=== PATIENT | female | born 1995 | race Caucasian/White ===

== ENCOUNTER → 2019-04-20 | Outpatient (CLI) | payer BC ==
[2019-04-20 15:03] VITALS: BP 136/84; PULSE 89; RESP 16; TEMP 98.4; BMI 26.5
--- NOTE | 2019-04-20 15:45 | P.GSHP ---
History of Present Illness H&P Date: 04/20/19 Chief Complaint: mass right breast The patient is a 23 year old white female with a complaint of a right breast lump. It has been present for two months. It has not changed in size, it is not painful. She had an ultrasound and was told it didn't show anything. She has no nipple discharge or changes. No recent trauma or infection in the breast. It as not changed with her periods[place] [address] Did Not Show Any Specific Lesions in the Right Breast. The patient drinks approximately 4 cups of coffee per week. She does not drink pop or other caffeinated beverages. She does not smoke and has not around secondhand smoke. She rarely eats chocolate. She has been on control pills for the last 5 years but is being weaned secondary to headaches and mood swings. Family History: 1. maternal grandmother: breast 2. maternal aunt: breast cancer two times same breast 3. cousin maternal: mid 20's breast cancer Hormonal history: Menarche:11 G0, not sexually active periods regular BCP: 5 years to regulate periods and for acne hormones: none Past surgical history: 1.pyloric stenosis Medical history: 1.adenomyosis 2. Polycystic ovarian syndrome Social History: smoke: none alcohol: none drugs: none - Constitutional Constitutional: Reports sweats - EENT Comment: Headaches twice a week Eyes: denies blurred vision, denies pain Ears: bilateral: tinnitus, deny: decreased hearing Ears, nose, mouth and throat: Reports headache, Denies sore throat - Breasts Breasts: bilateral: as per HPI - Cardiovascular Cardiovascular: Denies chest pain, Denies shortness of breath - Respiratory Comment: asthma - Gastrointestinal Comment: IBS Gastrointestinal: Reports constipation, Reports diarrhea - Menstruation Comment: on BCP Menstruation: Reports period normal - Musculoskeletal Musculoskeletal: Reports myalgias - Integumentary Integumentary: Denies pruritus, Denies rash - Neurological Comment: lower extremity numbness worse with activity Neurological: Reports numbness - Psychiatric Psychiatric: Reports anxiety, Reports depression - Endocrine Endocrine: Reports fatigue, Reports weight change - Hematologic/Lymphatic Comment: none - Allergic/Immunologic Allergic/Immunologic: Reports seasonal allergies Past Medical History History of Any Multi-Drug Resistant Organisms: None Reported Smoking Status: Never smoker Medications and Allergies Allergies Allergy/AdvReac Type Severity Reaction Status Date / Time No Known Allergies Allergy Unverified 04/20/19 15:05 Surgical - Exam Vital Signs Temp Pulse Resp BP Pulse Ox 98.4 F 89 16 136/84 98 04/20/19 14:45 04/20/19 14:45 04/20/19 14:45 04/20/19 14:45 04/20/19 14:45 BMI 26.5 - General well developed, well nourished, no distress - Eyes normal ocular movement - ENT no hearing loss, no congestion - Neck no masses, trachea midline, no lymphadectomy - Respiratory normal expansion, normal respiratory effort, clear to percussion, clear to auscultation - Cardiovascular Rhythm: regular Heart Sounds: normal: S1, S2 - Abdomen Abdomen: soft, non tender, no guarding, no rigid, no rebound - Integumentary normal turgor - Neurologic no disoriented, no combative - Musculoskeletal normal gait, normal posture - Psychiatric oriented to time, oriented to person, oriented to place, speech is normal, memory intact breast exam: Right breast: Multi-positional exam fibrocystic changes, increased nodularity at the 4 o'clock position may be consistent with fibroglandular tissue but this seems more prominent than surrounding tissue ultrasound of this area did not reveal anything Right axilla: No adenopathy of concern Left breast: Multi-positional exam fibrocystic changes Left axilla: No adenopathy of concern Results Ultrasound results reviewed Assessment and Plan Assessment: Impression: 1.adenomyosis 2. Polycystic ovarian syndrome 3. nodule right breast 4. family history of breast cancer 5. anxiety/depression 6. fibrocystic breast changes I discussed with the patient that the area in her right breast is most likely fibrofatty tissue. The patient however is concerned particularly in view of the fact that her cousin had breast cancer in her 20s. The area is palpable and I have given her the option of core biopsy. She wishes this to be performed. If this is benign will repeat an ultrasound of the side in 6 months. Plan: 1. Nodule right breast 4 o'clock position 2. Core biopsy probable area of the right breast 3. Have encouraged the patient to decrease caffeine intake 4. Fibrocystic breast changes to follow conservatively CC: Dr. Rhea Smith
== END | disposition home or self-care (01) ==
LOC: WWCWWP 14:42
PROVIDERS: ATTEND Surgery
DX: Z53.9 Procedure and treatment not carried out, unspecified reason (principal)

== ENCOUNTER → 2019-05-25 | Outpatient (CLI) | payer BC ==
--- NOTE | 2019-05-25 08:49 | P.PCN ---
Date of Procedure: 05/25/19 Preoperative Diagnosis: nodularty 4 o'clock position right breast Postoperative Diagnosis: same Procedure(s) Performed: Core biopsy of probable area of increased nodularity right breast 4 o'clock position Anesthesia: local Surgeon: Elisabet Logan Estimated Blood Loss (ml): 0 Pathology: other (Breast tissue) Condition: stable Disposition: same day Indications for Procedure: Patient fibroglandular breast changes with some mild increased nodularity at the 4 o'clock position of the right breast Operative Findings: Dense breast tissue Description of Procedure: The patient was brought to the procedure room. She was placed recumbent on the examining table. The area of concern in the right breast was prepped using Betadine. This was increased fibroglandular tissue with no discrete mass. 1% lidocaine was used to anesthetize the area of concern. A [employer] 18-gauge biopsy system was utilized to obtain a sample. The needle was advanced to the correct location. 3 core biopsies were obtained. The specimen was sent to pathology. The patient will follow Dr. Buckley next week.
[2019-05-25 10:36] VITALS: BP 101/75; PULSE 83; RESP 16; TEMP 98.3; BMI 26.5
== END ==
LOC: WWCWWP 08:05
PROVIDERS: ATTEND Surgery
DX: N63.13 Unspecified lump in the right breast, lower outer quadrant (principal)
CPT/HCPCS: 88305